=== PATIENT | female | born 1945 | race African-American/Black ===

== ENCOUNTER 2017-08-04 09:05 | Outpatient (CLI) | payer MEDICARE ==
--- NOTE | 2017-08-04 11:37 | MRI ---
MRI OF LUMBAR SPINE: Date: 08-04-17 Comparison: None. History: Polyneuropathy, chronic pain. Technique: Multiplanar, multisequence MRI images were obtained of the lumbar spine without contrast. FINDINGS: The sagittal STIR imaging demonstrates no focal area of osseous marrow edema. There is fluid within t he facet joints on the right at L2-3 and L3-4 and on the left at L2-3 through L5-S1. On the basis of five lumbar type vertebral bodies, the conus medullaris terminates in the T12-L1 bishnu on. T12-L1: There is disc space narrowing, disc desiccation and disc bulge with a left paracentral disc p rotrusion. There is bilateral facet hypertrophy. There is mild left lateral recess stenosis. L1-2: Bilateral facet hypertrophy and hypertrophy of ligamentum flavum, right greater than left. Ther e is disc space narrowing, disc desiccation and disc bulge. There is mild central canal stenosis with significant right lateral recess stenosis secondary to right foraminal and post foraminal disc protr usion and facet hypertrophy. There is severe right neural foraminal stenosis. There is no significant left neural foraminal stenosis. L2-3: There is disc space narrowing, disc desiccation, and mild disc bulge. There is bilateral facet hypertrophy and hypertrophy of ligamentum flavum. There is mild central canal stenosis, moderate righ t neural foraminal stenosis, and mild left neural foraminal stenosis. L3-4: There is disc space narrowing, disc desiccation and disc bulge. There is severe bilateral facet hypertrophy and hypertrophy of ligamentum flavum. There is severe central canal stenosis and severe left neural foraminal stenosis. There is moderate right neural foraminal stenosis. Severe left latera l recess stenosis noted as well. L4-5: Disc space narrowing, disc desiccation, vacuum disc formation and disc bulge. Prominent facet h ypertrophy and hypertrophy of ligamentum flavum, left greater than right. There is severe central can al stenosis with complete obliteration of the thecal sac and mass effect on the nerve roots of the ca [place]. There is moderate/severe right neural foraminal stenosis and severe left neural foraminal stenosis. L5-S1: Disc space narrowing, disc desiccation and disc bulge present. Prominent bilateral facet hyper trophy. Moderate/severe central canal stenosis. Severe bilateral neural foraminal stenosis. Imaged retroperitoneal structures demonstrate multiple T2 hyperintense lesions within the left kidney suggesting cysts. IMPRESSION: 1. 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 POS: RONNIE
== END 2017-08-04 09:06 | disposition home or self-care (01) ==
LOC: SCSMRI 09:05
PROVIDERS: ATTEND Psychiatry & Neurology Neurology
DX: G62.9 Polyneuropathy, unspecified (principal); M47.896 Other spondylosis, lumbar region; M48.061 Spinal stenosis, lumbar region without neurogenic claudication; M99.83 Other biomechanical lesions of lumbar region
CPT/HCPCS: 72148

== ENCOUNTER 2020-02-01 08:09 | Outpatient (CLI) | payer MEDICARE ==
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
== END 2020-02-01 08:10 | disposition home or self-care (01) ==
LOC: SCSRAD 08:09
PROVIDERS: ATTEND Family Medicine
DX: M54.2 Cervicalgia (principal); M47.812 Spondylosis without myelopathy or radiculopathy, cervical region
CPT/HCPCS: 72040

== ENCOUNTER 2021-01-01 10:38 | Outpatient (CLI) | payer MEDICARE | END 2021-01-01 10:39 | disposition home or self-care (01) | LOC: BICULT 10:38 | PROVIDERS: ATTEND Nurse Practitioner Acute Care | DX: Z01.818 Encounter for other preprocedural examination (principal); R09.89 Other specified symptoms and signs involving the circulatory and respiratory systems | CPT/HCPCS: 93880 ==

== ENCOUNTER 2021-08-14 09:50 | Outpatient (CLI) | payer MEDICARE | END 2021-08-14 09:51 | disposition home or self-care (01) | LOC: BICRAD 09:50 | PROVIDERS: ATTEND Physician Assistant | DX: Z47.89 Encounter for other orthopedic aftercare (principal); M47.816 Spondylosis without myelopathy or radiculopathy, lumbar region; M47.814 Spondylosis without myelopathy or radiculopathy, thoracic region; Z98.1 Arthrodesis status | CPT/HCPCS: 72081 ==

== ENCOUNTER 2022-01-21 09:32 | Outpatient (CLI) | payer OTHER | END 2022-01-21 09:33 | disposition home or self-care (01) | LOC: BICRAD 09:32 | PROVIDERS: ATTEND Orthopaedic Surgery | DX: M41.9 Scoliosis, unspecified (principal); M47.812 Spondylosis without myelopathy or radiculopathy, cervical region; Z98.1 Arthrodesis status | CPT/HCPCS: 72081 ==